=== PATIENT | female | born 1940 | race Caucasian/White ===

== ENCOUNTER 2019-05-08 11:29 | Inpatient (IN) | payer OTHER ==
[2019-05-08] MEDS ORDERED: NA CHLORIDE 0.9% 500 ML ONE (11:49)
[2019-05-08 11:59] LABS: Absolute Lymphocytes (CBC) 3.7 K/uL (0.7-4.9); Basophils % 0.7 % (0-1.3); Hematocrit 41.9 % (36.0-45.0); Lymphocytes % 27.8 % (15.3-44.8); MPV 8.6 fL (7.6-11.3); RBC Red Blood Cell Count 4.78 M/uL (3.86-4.86)
[2019-05-08 12:14] LABS: Potassium 4.1 mmol/L (3.5-5.1)
--- NOTE | 2019-05-08 12:15 | RAD REPORT ---
EXAM DESCRIPTION: CT - Head Brain Wo Cont - 05/08/2019 12:07 pm CLINICAL HISTORY: Declining state, transient alteration of awareness CT head October 2015 COMPARISON: None. TECHNIQUE: Axial 5 mm thick images of the head were obtained without IV contrast. All CT scans are performed using dose optimization technique as appropriate and may include automated exposure control or mA/KV adjustment according to patient size. FINDINGS: No intracranial hemorrhage, mass, edema or shift of mid-line structures. No acute cortical based infarction. No cortical edema or sulcal effacement. Patient has advanced atrophy. Ventricles a re in proportion to volume loss. Chronic ischemic change seen in the cerebral white matter. Atrophy c hanges have progressed from 2016. Physiologic and arterial calcifications are present. Mastoid air cells and visualized portions of the paranasal sinuses are clear. No acute bony findings. IMPRESSION: No hemorrhage, infarction or other acute intracranial finding identifiable. Advanced atrophy changes are present progressive from 2016. Ventricles are in proportion. Chronic ischemic change.
--- NOTE | 2019-05-08 12:15 | RAD REPORT ---
EXAM DESCRIPTION: Dona Single View05/08/2019 12:05 pm CLINICAL HISTORY: Leukocytosis COMPARISON: 2014 FINDINGS: The lungs appear clear of acute infiltrate. The heart is normal size IMPRESSION: No acute abnormalities displayed
[2019-05-08 12:46] LABS: Urine Bacteria >50 /HPF (<20); Urine RBC >50 /HPF (NONE SEEN)
[2019-05-08 12:47] LABS: Urine Amorphous Sediment 1+ /HPF (NONE SEEN); Urine Culture Reflex Order REFLEXED
[2019-05-08] MEDS ORDERED: CEFTRIAXONE/SWI 1gm 1 GM/10 ML SYR ONE (13:23)
[2019-05-08] MEDS ORDERED: NA CHLORIDE 0.9% 1,000 ML ONE (13:23)
--- NOTE | 2019-05-08 13:51 | ER ---
Nurse's Notes [facility] Name: Tere Oates Age: 79 yrs Sex: Female : 1940 Arrival Date: 05/08/2019 Time: 11:32 Bed 4 Private MD: Diagnosis: Urinary tract infection, site not specified;Dehydration;Altered mental status, unspecified;Hyperosmolality and hypernatremia Presentation: 05/08 11:32 Presenting complaint: EMS states: pt from [facility], they say for 6 days tw2 now she is altered, she has dementia and alzheimers, they say that normally she will feed herself and hold her own juice and for 6 days she has not been doing that, she also has wound to LEFT heel with blackness noted, she has elevated WBC they report from the skilled nursing. vs stable, bgl 145. Transition of care: patient was not received from another setting of care. Onset of symptoms was May 08, 2019. Risk Assessment: Do you want to hurt yourself or someone else? Patient reports no desire to harm self or others. Initial Sepsis Screen: Does the patient meet any 2 criteria? Altered Mental Status. HR > 90 bpm. Initial Sepsis Screen: Does the patient have a suspected source of infection? Yes: Skin breakdown/wound. Care prior to arrival: None. 11:32 Method Of Arrival: EMS: [facility] tw2 11:32 Acuity: ROSA 3 tw2 Triage Assessment: 11:39 General: Appears in no apparent distress. Behavior is cooperative. Pain: Denies pain. tw2 Neuro: Level of Consciousness is awake, alert, Oriented to person. Historical: - Allergies: 11:38 Fluoxetine; tw2 - Home Meds: 11:38 Aricept 23 mg Oral tab 1 tab once daily [Active]; Calcium with Vitamin D 600 tw2 mg(1,500mg) -400 unit Oral tab twice a day [Active]; citalopram 10 mg tab 1 tab once daily [Active]; Remeron 7.5 mg Oral tab 1 tab once daily [Active]; Vitamin C 500 mg Oral cpER [Active]; - PMHx: 11:38 ACUTE UPPER RESP INFECTION; Alzheimers; Dementia; Pneumonia; Depression; UTI; VITAMIN tw2 DEFICIENCY; - PSHx: 11:38 Hysterectomy; Bladder suspension; bladder stones; tw2 - Immunization history:: Adult Immunizations. - Social history:: Smoking status: . - Ebola Screening: : Patient denies travel to an Ebola-affected area in the 21 days before illness onset. - Hospitalizations: : No recent hospitalization is reported. - History obtained from: EMS. Screenin:39 Abuse screen: Denies threats or abuse. Nutritional screening: No deficits noted. tw2 Tuberculosis screening: No symptoms or risk factors identified. Fall Risk Secondary diagnosis (15 points) impaired mobility. Assessment: 11:40 General: Appears in no apparent distress. Behavior is calm. Neuro: Level of tw2 Consciousness is awake, obeys commands, Oriented to person. Cardiovascular: Heart tones S1 S2 Patient's skin is warm and dry. Respiratory: Airway is patent Respiratory effort is even, unlabored, Respiratory pattern is regular, symmetrical, Breath sounds are clear bilaterally. GI: Abdomen is flat, Bowel sounds present X 4 quads. : No signs and/or symptoms were reported regarding the genitourinary system. EENT: No signs and/or symptoms were reported regarding the EENT system. Derm: Wound noted right heel and left heel Wound is eschar noted to left and right heel from pressure ulcer. Musculoskeletal: Range of motion: limited in all extremities. 13:19 Reassessment: Patient appears in no apparent distress at this time. Patient and/or tw2 family updated on plan of care and expected duration. Pain level reassessed. 13:58 Reassessment: pts daughter came out requesting to motrin for pain "she keeps grabbing tw2 and shaking". 14:44 Reassessment: Patient appears in no apparent distress at this time. Patient and/or tw2 family updated on plan of care and expected duration. Pain level reassessed. Vital Signs: 11:34 BP 107 / 72; Pulse 95; Resp 18; Temp 97.5(TE); Pulse Ox 100% on R/A; Pain 0/10; tw2 11:51 Weight 65.77 kg (R); tw2 13:19 BP 127 / 109; Pulse 96; Resp 17; Pulse Ox 100% on R/A; tw2 14:35 BP 128 / 80; Pulse 95; Resp 18; Temp 97.8; Pulse Ox 100% on R/A; ph ED Course: 11:32 Patient arrived in ED. tw2 11:32 Bed in low position. Call light in reach. Side rails up X2. surveillance monitor on. Pulse tw2 ox on. NIBP on. Warm blanket given. 11:34 Triage completed. tw2 11:34 Arm band placed on. tw2 11:36 Ryan Jauregui MD is Attending Physician. rn 11:43 Nohemi Steve RN is Primary Nurse. tw2 11:53 Inserted saline lock: 22 gauge in left antecubital area, using aseptic technique. tw2 ,using aseptic technique. per Randal Young Blood collected. 12:04 XRAY Chest (1 view) In Process Unspecified. EDMS 12:08 CT Head Brain wo Cont In Process Unspecified. EDMS 12:31 Straight cath inserted, using sterile technique, 16 Fr. Specimen obtained. Returned ph cloudy urine. Patient tolerated poorly. 13:49 Holden Reyna DO is Hospitalizing Provider. rn 15:00 Awaiting: unsuccessful attempt to give report at this time. tw2 15:18 No provider procedures requiring assistance completed. Patient admitted, IV remains in tw2 place. Administered Medications: 11:53 Drug: NS 0.9% 500 ml Route: IV; Rate: bolus; Site: right antecubital; tw2 13:28 Follow up: Response: No adverse reaction; IV Status: Completed infusion; IV Intake: tw2 500ml 13:22 Drug: Rocephin 1 grams Route: IV; Rate: calculated rate; Site: left antecubital; tw2 13:28 Follow up: IV Status: Infusion continued upon admission tw2 13:28 Follow up: Response: No adverse reaction; IV Status: Completed infusion tw2 13:28 Drug: NS 0.9% 1000 ml Route: IV; Rate: 125 ml/hr; Site: left antecubital; tw2 13:29 Follow up: IV Status: Infusion continued upon admission tw2 Intake: 13:28 IV: 500ml; Total: 500ml. tw2 Outcome: 13:50 Decision to Hospitalize by Provider. rn 15:18 Admitted to Med/surg accompanied by randal, via stretcher, room 203, with chart, Report tw2 called to SUSAN Pang 15:18 Condition: stable 15:18 Instructed on the need for admit. 15:30 Patient left the ED. ph Signatures: Dispatcher [employer] EDHector Ennis [email or web address] Ryan Jauregui MD MD rn Hall, Patricia, RN RN Nohemi Steve RN RN tw2 Corrections: (The following items were deleted from the chart) 11:39 11:32 Presenting complaint: EMS states: pt from [facility], they say for 6 tw2 days now she is altered, she has dementia and alzheimers, they say that normally she will feed herself and hold her own juice and for 6 days she has not been doing that, she also has wound to right heel with blackness noted, she has elevated WBC they report from the skilled nursing. vs stable, bgl 145 tw2 11:51 11:34 Pulse 95bpm; Resp 18bpm; Pulse Ox 100% RA; Temp 97.5F Temporal; Pain 0/10; tw2 tw2 14:47 13:10 BP 127 / 109; jb1 tw2
--- NOTE | 2019-05-08 13:52 | EDPHYS ---
Physician Documentation [facility] Name: Tere Oates Age: 79 yrs Sex: Female : 1940 Arrival Date: 05/08/2019 Time: 11:32 Bed 4 Private MD: ED Physician Ryan Jauregui HPI: 05/08 11:43 This 79 yrs old Female presents to ER via EMS with complaints of Altered rn Mental Status. 11:43 The patient presents with confusion, decreased mental status. Onset: The rn symptoms/episode began/occurred 6 day(s) ago. Possible causes: unknown. Associated signs and symptoms: The patient has no apparent associated signs or symptoms. Current symptoms: In the emergency department the patient's symptoms are unchanged from the initial presentation. The patient has experienced similar episodes in the past. Per residential, 6 days of slowly worsening AMS, has dementia but worse lately, no focal complaints, but report patient not eating/drinking. No vomiting/diarrhea. Has known superficial wounds to heels from pressure. NO known trauma. Patient aphasic. . Historical: - Allergies: 11:38 Fluoxetine; tw2 - Home Meds: 11:38 Aricept 23 mg Oral tab 1 tab once daily [Active]; Calcium with Vitamin D 600 tw2 mg(1,500mg) -400 unit Oral tab twice a day [Active]; citalopram 10 mg tab 1 tab once daily [Active]; Remeron 7.5 mg Oral tab 1 tab once daily [Active]; Vitamin C 500 mg Oral cpER [Active]; - PMHx: 11:38 ACUTE UPPER RESP INFECTION; Alzheimers; Dementia; Pneumonia; Depression; UTI; VITAMIN tw2 DEFICIENCY; - PSHx: 11:38 Hysterectomy; Bladder suspension; bladder stones; tw2 - Immunization history:: Adult Immunizations. - Social history:: Smoking status: . - Ebola Screening: : Patient denies travel to an Ebola-affected area in the 21 days before illness onset. - Hospitalizations: : No recent hospitalization is reported. - History obtained from: EMS. ROS: 11:43 Unable to obtain ROS due to altered mental status, baseline dementia. rn Exam: 11:43 Constitutional: Female, no acute distress Head/Face: Normocephalic, atraumatic. ENT: rn very dry MM Cardiovascular: Regular rate and rhythm. No pulse deficits. Respiratory: No increased work of breathing, no retractions or nasal flaring. Abdomen/GI: soft, non-tender, non-distended MS/ Extremity: Pulses equal, no cyanosis. Bilateral lower extremities held preferably with knee flexion, chronic wound to left foot with dressing, right heel with pressure changes, no ulceration yet. Neuro: Awake, does not follow commands or answer questions. Vital Signs: 11:34 BP 107 / 72; Pulse 95; Resp 18; Temp 97.5(TE); Pulse Ox 100% on R/A; Pain 0/10; tw2 11:51 Weight 65.77 kg (R); tw2 13:19 BP 127 / 109; Pulse 96; Resp 17; Pulse Ox 100% on R/A; tw2 14:35 BP 128 / 80; Pulse 95; Resp 18; Temp 97.8; Pulse Ox 100% on R/A; ph MDM: 11:36 Patient medically screened. rn 13:49 Differential Diagnosis: electrolyte abnormality, hypoglycemia, pneumonia, sepsis, UTI, rn volume depletion. Data reviewed: vital signs, nurses notes, lab test result(s), EKG, radiologic studies, CT scan, plain films, and as a result, I will admit patient. Counseling: I had a detailed discussion with the patient and/or guardian regarding: the historical points, exam findings, and any diagnostic results supporting the discharge/admit diagnosis, lab results, radiology results, the need for further work-up and treatment in the hospital. Response to treatment: the patient's symptoms have mildly improved after treatment, and as a result, I will admit patient. Admission orders: after a detailed discussion of the patient's condition and case, the admit orders are written by me. 05/08 11:42 Order name: CBC with Diff; Complete Time: 12:29 rn 05/08 11:42 Order name: Basic Metabolic Panel; Complete Time: 12:29 rn 05/08 11:42 Order name: CT Head Brain wo Cont; Complete Time: 12:29 rn 05/08 11:42 Order name: Urine Microscopic Only; Complete Time: 13:13 rn 05/08 12:34 Order name: Urine Dipstick--Ancillary (enter results) eb 05/08 12:50 Order name: Urine Culture EDKY 05/08 11:42 Order name: IV Start; Complete Time: 11:53 rn 05/08 11:42 Order name: Urine Dipstick-Ancillary (obtain specimen); Complete Time: 14:35 rn 05/08 11:42 Order name: XRAY Chest (1 view); Complete Time: 12:29 rn 05/08 11:42 Order name: EKG; Complete Time: 11:45 rn 05/08 11:42 Order name: EKG - Nurse/Tech; Complete Time: 11:53 rn 05/08 11:53 Order name: Straight Cath - Urine; Complete Time: 12:24 tw2 Administered Medications: 11:53 Drug: NS 0.9% 500 ml Route: IV; Rate: bolus; Site: right antecubital; tw2 13:28 Follow up: Response: No adverse reaction; IV Status: Completed infusion; IV Intake: tw2 500ml 13:22 Drug: Rocephin 1 grams Route: IV; Rate: calculated rate; Site: left antecubital; tw2 13:28 Follow up: IV Status: Infusion continued upon admission tw2 13:28 Follow up: Response: No adverse reaction; IV Status: Completed infusion tw2 13:28 Drug: NS 0.9% 1000 ml Route: IV; Rate: 125 ml/hr; Site: left antecubital; tw2 13:29 Follow up: IV Status: Infusion continued upon admission tw2 Disposition: 05/08/19 13:50 Hospitalization ordered by Holden Reyna for Inpatient Admission. Preliminary diagnosis are Urinary tract infection, site not specified, Dehydration, Altered mental status, unspecified, Hyperosmolality and hypernatremia. - Bed requested for Telemetry/MedSurg (Inpatient). - Status is Inpatient Admission. ph - Condition is Stable. - Problem is new. - Symptoms have improved. UTI on Admission? Yes Signatures: Dispatcher [employer] EDRyan Orozco MD MD rn Hall, Patricia, RN RN ph Wise, Tara, RN RN tw2 Maria E Galan Corrections: (The following items were deleted from the chart) 13:50 13:50 Hospitalization Ordered by Holden Reyna DO for Inpatient Admission. Preliminary rn diagnosis is Urinary tract infection, site not specified; Dehydration; Altered mental status, unspecified. Bed requested for Telemetry/MedSurg (Inpatient). Status is Inpatient Admission. Condition is Stable. Problem is new. Symptoms have improved. UTI on Admission? Yes. rn 14:53 13:50 05/08/2019 13:50 Hospitalization Ordered by Holden Reyna DO for Inpatient eb Admission. Preliminary diagnosis is Urinary tract infection, site not specified; Dehydration; Altered mental status, unspecified; Hyperosmolality and hypernatremia. Bed requested for Telemetry/MedSurg (Inpatient). Status is Inpatient Admission. Condition is Stable. Problem is new. Symptoms have improved. UTI on Admission? Yes. rn 15:30 14:53 05/08/2019 13:50 Hospitalization Ordered by Holden Reyna DO for Inpatient ph Admission. Preliminary diagnosis is Urinary tract infection, site not specified; Dehydration; Altered mental status, unspecified; Hyperosmolality and hypernatremia. Bed requested for Telemetry/MedSurg (Inpatient). Status is Inpatient Admission. Condition is Stable. Problem is new. Symptoms have improved. UTI on Admission? Yes. eb
[2019-05-08] MEDS ORDERED: IBUPROFEN 400 MG TAB ONE (14:03)
--- NOTE | 2019-05-08 14:44 | P.HP ---
Certification for Inpatient Patient admitted to: Inpatient With expected LOS: >2 Midnights Patient will require the following post-hospital care: None Practitioner: I am a practitioner with admitting privileges, knowledge of patient current condition, hospital course, and medical plan of care. Services: Services provided to patient in accordance with Admission requirements found in Title 42 Section 412.3 of the Code of Federal Regulations Patient History Date of Service: 05/08/19 Primary Care Provider: [facility] [place] physician Reason for admission: Altered mental status History of Present Illness: 79-year-old female with history of severe dementia and depression presented to the emergency room with a change in her normal baseline mental status. Most information came from the daughter and son who were present at bedside along with the ER physician. Over the past week patient has had poor oral intake. Patient with altered mental status. There has been a change from her baseline status. Patient with severe dementia. There is no mention of fever, chills. No cough for congestion. [facility] [place] had ordered lab this morning. They noted elevated white count with acute renal injury and hypernatremic. She was sent over to the ER for further evaluation. In the ER patient was evaluated. Vital signs stable. White count 13.4, hemoglobin 13.4. Platelet count of 451. Sodium 156, potassium 4.1, chloride 122 , BUN of 29, creatinine 1.31 with a GFR of 39. Glucose 111. CT head shows no acute findings. Chest x-ray unremarkable. Urinalysis was positive for UTI. Patient was admitted for further evaluation and treatment. Patient started on antibiotic therapy and IV fluids. When I saw the patient ER, she appeared stable. Patient with severe dementia. Family at bedside. Patient did not appear septic. Family reports that the patient has had poor oral intake over the past several days. Allergies fluoxetine Allergy (Unverified 02/04/15 17:32) Unknown fluoxetine HCl [From Prozac] Allergy (Verified 09/10/13 10:03) UNK Home medications list reviewed: Yes Home Medications: Calc/D3/Mag/Zn/Fish Machine Feeder/[place] [Calcium 600 mg + Vit D Tab] 1 each PO BID Citalopram Hydrobromide [Citalopram HBr] 20 mg PO DAILY 09/10/13 Divalproex Sodium [Divalproex Sodium ER] 1,500 mg PO DAILY 09/10/13 Donepezil HCl [Aricept] 10 mg PO BEDTIME 09/10/13 Multivit-Min/FA/Lycopene/Lut [Centrum Silver Tablet] 1 each PO DAILY 09/10/13 Sennosides/Docusate Sodium [Senna Plus Tablet] 1 each PO DAILY PRN 09/10/13 l Gasseri/B Bifidum/B Longum [restOpolis Health Capsule] 1 each PO DAILY Azithromycin Tab [Zithromax -Tab] 250 mg PO DAILY #10 tab 09/14/13 Warfarin Sodium [Coumadin*] 4 mg PO DAILY 5 PM #30 tab 09/14/13 - Past Medical/Surgical History Diabetic: No -: Severe Alzheimer's dementia -: History of UTI -: Depression -: History of melanoma -: Chronic heel ulcers -: Chronic renal disease stage III -: Hysterectomy -: Bladder suspension -: Tonsillectomy Psychosocial/ Personal History: Patient has been at the [facility] for quite some time. - Family History Family History: Reviewed- Non-Contributory - Social History Smoking Status: Never smoker Alcohol use: No CD- Drugs: No Caffeine use: No Place of Residence: Custodial Review of Systems General: Weakness, As per HPI Eyes: Unremarkable ENT: Unremarkable Respiratory: Unremarkable Cardiovascular: Unremarkable Gastrointestinal: Unremarkable Genitourinary: As per HPI Musculoskeletal: Unremarkable Integumentary: Unremarkable Neurological: Confusion, As per HPI Lymphatics: Unremarkable Physical Examination - Physical Exam General: Alert, In no apparent distress, Demented (Severe dementia) HEENT: Atraumatic, Normocephalic, Other (Dry mucous membranes) Neck: Supple Respiratory: Clear to auscultation bilaterally, Normal air movement Cardiovascular: Normal pulses, Regular rate/rhythm Gastrointestinal: Normal bowel sounds, Soft and benign, Non-distended, No tenderness, No masses, No rebound, No guarding Musculoskeletal: No tenderness, No warmth, Other (Severe kyphosis) Integumentary: Other (Chronic ulcers bilateral) Neurological: Normal speech, Normal strength at 5/5 x4 extr, Normal tone, Dementia (Severe dementia) - Studies Laboratory Data (last 24 hrs) 05/08/19 11:50: Sodium 156 H, Potassium 4.1, BUN 29 H, Creatinine 1.31 H, Glucose 111 H 05/08/19 11:50: WBC 13.4 H D, Hgb 13.4, Hct 41.9, Plt Count 451 H Assessment and Plan - Plan Impression: Toxic encephalopathy related to UTI Acute on chronic renal failure stage 3 with hypernatremia Severe Alzheimer's dementia Chronic bilateral heel ulcers Plan: Toxic encephalopathy related to UTI: Patient will be admitted for further evaluation and treatment. Will continue with IV fluid hydration. Will start IV Rocephin, pharmacy to monitor and adjust appropriately. Blood, urine cultures obtained. Await final results. Will provide DVT prophylaxis-Lovenox. Advanced directives address with family. Patient has [id number] DNR. Will continue with DNR status. If her condition continues to decline family would consider hospice at the [facility]. Family also reports patient and family do not desire any PEG tube placement if recommended. Will have dietary assess daily needs. Will continue to monitor closely. Anticipate discharge in 3-4 days pending clinical improvement. I will turn the service over to the hospitalist team tomorrow. I will go over the plan of care with him. Acute on chronic renal failure stage 3 with hypernatremia: Will continue with IV fluids. Will monitor closely. Electrolyte protocol in place. Nephrology consulted to further assess. Severe Alzheimer's dementia: Continue with Aricept, Celexa, and Remeron. Chronic bilateral heel ulcers: Will consult wound care to address heel ulcers. Provide heel protection. Discharge Plan: Custodial Plan to discharge in: Greater than 2 days - Advance Directives Does patient have a Living Will: No Does patient have a Durable POA for Healthcare: Yes - Code Status/Comfort Care Code Status Assessed: Yes (Patient is DNR) Time Spent Managing Pts Care (In Minutes): 55
[2019-05-08] MEDS ORDERED: ACETAMINOPHEN 500 MG TAB PO PRN (15:54)
[2019-05-08] MEDS ORDERED: ONDANSETRON 4 MG/2 ML VIAL IV PRN (15:54)
[2019-05-08 16:02] VITALS: BMI 30.7
--- NOTE | 2019-05-08 16:34 | EKG ---
Test Date: 2019-05-08 Test Time: 11:54:42 Spinning Bath Patroller: JOE MEASUREMENT RESULTS: Intervals: Rate: 103 ME: 116 QRSD: 62 QT: 342 QTc: 448 [place]: P: 34 ME: 116 QRS: -29 T: 0 INTERPRETIVE STATEMENTS: Sinus tachycardia with occasional and consecutive premature ventricular complexes and fusion complexes Minimal voltage criteria for LVH, may be normal variant Inferior infarct, age undetermined Abnormal ECG Compared to ECG 01/31/2015 13:44:26 Fusion complex(es) now present Ventricular premature complex(es) now present Left ventricular hypertrophy now present Myocardial infarct finding now present Sinus bradycardia no longer present Electronically Signed On 05-08-19 16:33:49 TRAFFIC REPORTER by Duy Hughes
[2019-05-08] MEDS: D5 0.45 NS 1,000 ML IV SCH (17:42)
[2019-05-08] MEDS: ENOXAPARIN 40 MG/0.4 ML SQ SCH (17:42)
[2019-05-08 17:44] LABS: Urine Blood 3+ (NEG); Urine Glucose NEGATIVE (NEG); Urine Protein 3+ (NEG); Urine pH 8.5 (5.0-7.0)
[2019-05-08] MEDS: MIRTAZAPINE 15 MG TAB PO SCH (21:00)
[2019-05-08] MEDS: DONEPEZIL HCL 5 MG TAB PO SCH (21:00)
[2019-05-09 06:33] LABS: Absolute Lymphocytes (CBC) 2.8 K/uL (0.7-4.9); Basophils % 0.9 % (0-1.3); Hematocrit 35.8 % (36.0-45.0); Lymphocytes % 25.5 % (15.3-44.8); MPV 8.9 fL (7.6-11.3)
[2019-05-09] MEDS: D5 0.45 NS 1,000 ML IV SCH (06:56)
[2019-05-09 07:25] LABS: Magnesium 2.3 mg/dL (1.8-2.4); Potassium 3.5 mmol/L (3.5-5.1)
[2019-05-09] MEDS: CITALOPRAM 10 MG TABLET PO SCH (09:00)
[2019-05-09] MEDS: ENOXAPARIN 40 MG/0.4 ML SQ SCH (09:38)
[2019-05-09] MEDS: CEFTRIAXONE/SWI 1gm 1 GM/10 ML SYR IVP SCH (09:38)
--- NOTE | 2019-05-09 12:53 | P.CNS ---
Date of Consult: 05/09/19 Reason for Consult: Lilia , hypernatremia Primary Care Provider: retirement physician Chief Complaint: Altered mental status History of Present Illness: pt is unable to provide HX, Hx obtained from chart A 79-year-old resident, bedbound, with advanced dementia pt sent from [place] for decreased oral intake pt had poor oral inatke over the past week, last todays noticed to have AMS , and no oral intake as per family ot have no fever, chills, nausea, vomiting, chest pain or palpitation Allergies fluoxetine Allergy (Severe, Verified 05/08/19 16:18) Unknown fluoxetine HCl [From Prozac] Allergy (Verified 05/08/19 16:17) UNK Home medications list reviewed: Yes Home Medications: Multivit-Min/FA/Lycopene/Lut [Centrum Silver Tablet] 1 each PO DAILY 09/10/13 Acetaminophen 2 tab PO Q4H PRN 05/08/19 Arginine/Ascorbate Sod/Edwar AC [Arginaid Powder] 1 packet PO DAILY 05/08/19 Ascorbate Calcium [Vitamin C] 1 tab PO DAILY 05/08/19 Calcium Carbonate/Vitamin D3 [Calcium 600 with Vit D Chew Tb] 1 tab PO BID 05/08 Citalopram [Celexa*] 1 tab PO DAILY 05/08/19 Donepezil HCl [Aricept] 1 tab PO BEDTIME 05/08/19 Mirtazapine 1 tab PO BEDTIME 05/08/19 Zinc Sulfate [Zinc Sulfate*] 220 mg PO DAILY 05/08/19 - Past Medical/Surgical History Diabetic: No -: Severe Alzheimer's dementia -: History of UTI -: Depression -: History of melanoma -: Chronic heel ulcers -: Chronic renal disease stage III -: Hysterectomy -: Bladder suspension -: Tonsillectomy Psychosocial/ Personal History: [facility] has been at the [facility] for [facility] some [facility]. - Social History Smoking Status: Never smoker Alcohol use: No CD- Drugs: No Caffeine use: Yes Place of Residence: [facility] Review of Systems General: As per HPI Eyes: Unremarkable ENT: Unremarkable Respiratory: As per HPI Cardiovascular: As per HPI Gastrointestinal: As per HPI Genitourinary: Unremarkable Musculoskeletal: Other (Bedbound) Neurological: Other (was confused now at baseline ) Physical Examination Temp Pulse Resp BP Pulse Ox 97.3 F 88 18 121/76 97 05/09/19 08:00 12/21/19 08:00 05/09/19 08:00 05/09/19 08:00 05/09/19 08:00 General: Alert, Oriented x1 HEENT: Atraumatic, EOMI Neck: Supple, Without JVD or thyroid abnormality Respiratory: Clear to auscultation bilaterally, Normal air movement Cardiovascular: No edema, Regular rate/rhythm, Normal S1 S2, No gallops, No rubs , No murmurs Gastrointestinal: Soft and benign, Non-distended Conclusions/Impression: LILIA resolved due to prerenal azotemia hypernatremia and hypercholeremia due to dehydration will switch fluid to D5w lt foot wound F/u X-ray Surgery evaluation UTI F/u culture cont Abx
[2019-05-09] MEDS: D5 0.9 NS 1,000 ML IV SCH (14:11)
--- NOTE | 2019-05-09 15:27 | RAD REPORT ---
EXAM DESCRIPTION: RAD - Foot Left 3 View - 05/09/2019 2:03 pm CLINICAL HISTORY: Left Foot pain FINDINGS: No fracture or dislocation is seen. Cortical irregularity involves the plantar aspect of the distal calcaneus. This may indicate mild os teomyelitis. If clinically indicated further evaluation with MRI could be obtained Osteoporosis
[2019-05-09 16:43] LABS: Thyroid Stimulating Hormone 1.67 uIU/mL (0.360-3.740)
--- NOTE | 2019-05-09 17:35 | PN ---
Subjective: Currently, she is lying in bed. She is sleeping. She is not responsive to verbal stimuli, but she responds to touch. She continues to be confused at baseline. Objective: Vital Signs: Currently, blood pressure is 121/76, respiratory rate 18, pulse 88, temperature 97.3. Patient is saturating 97% on room air. General: She is sleeping, but arousable. Confused. Does not look in any distress. HEENT: Atraumatic, normocephalic. Oral mucosa is dry. Neck: Supple. No JVD. No bruits. Chest: Clear to auscultation. Good air entry. Heart: Regular rate and rhythm. S1, S2 normal. No gallop. Abdomen: Soft, nontender. No masses. No hepatosplenomegaly. Positive bowel sounds. Extremities: No clubbing, cyanosis, or edema. No calf tenderness. Left foot with a large open wound. Dressing in place. There is no bleeding or oozing. Neurologic: Normal speech and normal muscle strength, but she is confused due to her severe dementia. Laboratory Data: Today, CBC was normal except for hemoglobin 11.4. Chemistry within normal except for sodium of 153, chloride 102, GFR 58, glucose 126, calcium 7.7. Assessment And Plan: 1. Toxic encephalopathy secondary to urinary tract infection versus dementia. According to the family, patient's mental status is at baseline. We will continue to observe for now. 2. Urinary tract infection. Urine culture was positive for gram-negative rods. She is on ceftriaxone. We will continue that for now. We will switch to Cipro upon discharge based on the sensitivity. 3. A large open wound on the left foot heel. We will consult Wound Care. We will consult general surgeon to see if the patient will benefit from debridement. 4. Hypernatremia with acute renal failure. Renal failure resolved with IV fluids. Hypernatremia is not much better. Her sodium is down from 166 to 153. She is on D5 half-normal saline. Nephrology is following. 5. Dementia. She is on Celexa as well as Aricept. 6. Deep vein thrombosis prophylaxis, on Lovenox. 7. Insomnia, on Remeron. 8. Consider PT/OT evaluation if no surgery , unless pt is bedbound , will check with family MT/MELISSA Voice ID: [id number] Report ID: [id number] MTDD
[2019-05-09] MEDS: MIRTAZAPINE 15 MG TAB PO SCH (20:42)
[2019-05-09] MEDS: DONEPEZIL HCL 5 MG TAB PO SCH (20:42)
[2019-05-10] MEDS: D5 0.9 NS 1,000 ML IV SCH ×2 (02:45→16:00)
[2019-05-10 04:59] LABS: Absolute Lymphocytes (CBC) 2.6 K/uL (0.7-4.9); Basophils % 0.4 % (0-1.3); Hematocrit 34.6 % (36.0-45.0); MPV 8.5 fL (7.6-11.3); RBC Red Blood Cell Count 3.97 M/uL (3.86-4.86)
[2019-05-10 05:10] LABS: Magnesium 2.1 mg/dL (1.8-2.4); Phosphorus 2.2 mg/dL (2.5-4.9); Potassium 3.4 mmol/L (3.5-5.1)
[2019-05-10] MEDS: KCL 20 MEQ/100 mL IVPB 20 MEQ/100 ML BAG IV SCH ×2 (05:51→08:53)
[2019-05-10] MEDS: CITALOPRAM 10 MG TABLET PO SCH (08:53)
[2019-05-10] MEDS: ENOXAPARIN 40 MG/0.4 ML SQ SCH (08:55)
[2019-05-10] MEDS: CEFTRIAXONE/SWI 1gm 1 GM/10 ML SYR IVP SCH (08:55)
--- NOTE | 2019-05-10 10:10 | P.PN ---
Subjective Date of Service: 05/10/19 Primary Care Provider: [facility]iary physician Chief Complaint: Altered mental status Subjective Pt was admitted with poor oral intake, found to have UTI , LILIA and hypernatremia Today sodium improving to 150 K replaced X-ray with poible OM, consider CT scan or MRI for further evaluation pending surgery evaluation Past Medical/Surgical History Diabetic: No -: Severe Alzheimer's dementia -: History of UTI -: Depression -: History of melanoma -: Chronic heel ulcers -: Chronic renal disease stage III -: Hysterectomy -: Bladder suspension -: Tonsillectomy Psychosocial/ Personal History: Patient has been at the custodial for quite some time. - Social History Smoking Status: Never smoker Alcohol use: No CD- Drugs: No Caffeine use: Yes Place of Residence: [facility] General: Alert, Oriented x1 HEENT: Atraumatic, EOMI Neck: Supple, Without JVD or thyroid abnormality Respiratory: Clear to auscultation bilaterally, Normal air movement Cardiovascular: Regular rate/rhythm, Normal S1 S2, No gallops, No rubs, No murmurs Gastrointestinal: Soft and benign, Non-distended extreemites: B/l feet dressing , trace edema LILIA resolved due to prerenal azotemia hypernatremia and hypercholeremia due to dehydration and poor oral intake improving Encourage Po intake Cont D5w lt foot wound with Possible OM Consider CT scan or MRI for further evaluation Surgery evaluation UTI E.coli and proteus cont Abx Physical Examination - Vital Signs Temperature: 97.1 F Blood Pressure: 113/63 Pulse: 67 Respirations: 18 Pulse Ox (%): 96 - Studies Microbiology Data (last 24 hrs): 05/08/19 12:25 Clean Catch Urine [place] Count - Final >100,000 CFU/ML. 05/08/19 12:25 Clean Catch Urine - Final Escherichia Coli Proteus Mirabilis
--- NOTE | 2019-05-10 16:40 | PN ---
Subjective: Currently patient lying in bed. She is very confused. Her daughter is at bedside. The re is no chest pain. No fever or chills or shortness of breath overnight. She is having difficulty swallowing. Details are clear about the result of x-ray. Review of Systems: Otherwise negative. Objective: CURRENT VITAL SIGNS: Blood pressure 113/63, respiratory rate 67, respiratory rate 18, te mperature 97.1. General: The patient is alert but confused. Does not look in any distress. HEENT: Atraumatic, normocephalic. PERRLA. Oral mucosa is moist. Neck: Supple. No JVD. No bruits. CHEST: Clear to auscultation. Good air entry. Heart: Regular rate and rhythm S1, S2 normal. No gallop or murmur. Abdomen: Soft, nontender. No masses. No HSM. Positive bowel sounds. Extremities: No clubbing, cyanosis, or edema. No edema no cough tenderness. Left is large open wou nd with a dressing around it. There was no bleeding or oozing noted exam deferred today. Patient is confused. Laboratory Data: Labs today showed CBC within normal except for hemoglobin 10.9. Chemistry within n ormal except for potassium 3.4, chloride 120, sodium 150. GFR of 69, glucose 126, calcium 7.8. Assessment And Plan: 1.Toxic encephalopathy secondary to urinary tract infection versus progressive dementia. The patien t's mental status is at baseline. Continue to observe for now. 2.Urinary tract infection. Urine culture was positive for gram-negative rods. The patient on ceftr iaxone, will continue that for now and may be switched to Cipro and sensitive to Cipro upon discharge . 3.Large open wound on the left foot. X-ray consistent with possible osteomyelitis. Surgical consul t requested yesterday from Dr. French is still pending. We will proceed with MRI of the foot and we will see if patient will need debridement. 4.Hyponatremia in the light of acute renal failure. Improving her creatinine down to normal. Sodiu m is down to 150. She is on D5 half-normal. Nephrology managing. 5.Hypokalemia, mild. We will replace. 6.Deep vein thrombosis prophylaxis, on Lovenox. 7.Insomnia, on Remeron. 8.Dysphagia. We will obtain swallow eval. Daughter is not interested in PEG tube if patient cannot swallow as patient is DNR and she had a poor quality life. MT/MODL Voice ID: [id number] Report ID: [id number]
[2019-05-10] MEDS: MIRTAZAPINE 15 MG TAB PO SCH (20:40)
[2019-05-10] MEDS: DONEPEZIL HCL 5 MG TAB PO SCH (20:40)
[2019-05-11] MEDS: D5 0.9 NS 1,000 ML IV SCH ×2 (04:50→15:41)
[2019-05-11 05:01] LABS: Absolute Lymphocytes (CBC) 2.6 K/uL (0.7-4.9); Basophils % 1.1 % (0-1.3); Hematocrit 34.5 % (36.0-45.0); Lymphocytes % 27.1 % (15.3-44.8); MPV 8.9 fL (7.6-11.3); RBC Red Blood Cell Count 4.01 M/uL (3.86-4.86)
[2019-05-11 05:12] LABS: Phosphorus 2.1 mg/dL (2.5-4.9); Potassium 3.5 mmol/L (3.5-5.1)
[2019-05-11] MEDS ORDERED: KCL 20 MEQ/100 mL IVPB 20 MEQ/100 ML BAG IV SCH (06:00)
[2019-05-11] MEDS: CITALOPRAM 10 MG TABLET PO SCH ×2 (08:13→14:51)
[2019-05-11] MEDS: CEFTRIAXONE/SWI 1gm 1 GM/10 ML SYR IVP SCH (08:15)
[2019-05-11] MEDS: JUVEN PACKET PO SCH ×4 (08:50→21:09)
[2019-05-11] MEDS: ENSURE HIGH PROTEIN 237 ML CAN PO SCH ×3 (08:50→21:09)
[2019-05-11] MEDS: ENOXAPARIN 40 MG/0.4 ML SQ SCH ×2 (09:00→14:43)
--- NOTE | 2019-05-11 10:46 | RAD REPORT ---
EXAM DESCRIPTION: RAD - Barium Swallow Modified - 05/11/2019 10:07 am CLINICAL HISTORY: Dysphagia COMPARISON: None. TECHNIQUE: The patient was given liquid, semi-solid and solid forms of barium. Lateral view fluorosc opic imaging was performed in conjunction with speech pathology service. FINDINGS: Cineloop acquisitions: 9 Fluoro time: 2 minutes 42 seconds Pharyngeal residue: vallecular , priform mild with honey , puree ad grham cracker cleared on multi sw allow , other : mild stasis in ues , mild-mod esophageal retention with dry solids cleared with nectar wash IMPRESSION: Modified barium swallow as summarized above and fully detailed on speech pathology repor tMihir
--- NOTE | 2019-05-11 14:11 | P.PN ---
Date of Service: 05/11/19 PC: I was asked to assess a 79-year-old female in regards to injuries on her heels. HPC: Patient has dense Alzheimer's. Minimal reactions at all. She is a patient in a [place] [facility]. More recently she has not been doing as well as usual. Has been a decline in her condition. She is no longer eating. It was noticed to have breakdown the skin on her heels. PMH: Alzheimer's SOC: Listed and noted SYS REVIEW: Long discussion with her family. She has been in some physical decline recently. Has been eating at all well. She just had a swallow test recently which she passed. She has been like this for the last 18 years. O/E awake does not appear to be any discomfort HEENT: WNL Chest: Chest wound equal bilaterally ABD: Sign LOCO: On her heel has an area of extensive necrotic tissue. However once it is clear that there is an area that shows full-thickness skin necrosis but there is healthy granulation tissue around it. No evidence of any abscess. IMPRESSION: Patient has bilateral heel necrosis. Appears to be full-thickness skin loss of these areas. However there is viable underlying tissue in the area. PLAN: This patient is on require surgical debridement at this moment. Recommend conservative therapy due to her underlying medical conditions. The family is strongly discussing just routine hospice care for her. I would be very supportive in that decision. In the meantime recommend conservative wound management, and barriers on her feet. She has been seen by the wound care team.
--- NOTE | 2019-05-11 15:10 | P.PN ---
Subjective Date of Service: 05/11/19 Primary Care Provider: [facility]it[facility]iary physician Chief Complaint: Altered mental status Subjective Pt was admitted with poor oral intake, found to have UTI , LILIA and hypernatremia Today sodium improving to 147 K replaced X-ray with possible OM, consider CT scan or MRI for further evaluation No surgical intervention at this time Past Medical/Surgical History Diabetic: No -: Severe Alzheimer's dementia -: History of UTI -: Depression -: History of melanoma -: Chronic heel ulcers -: Chronic renal disease stage III -: Hysterectomy -: Bladder suspension -: Tonsillectomy Psychosocial/ Personal History: [facility] at [facility]. - Social History Smoking Status: Never smoker Alcohol use: No CD- Drugs: No Caffeine use: Yes Place of Residence: [facility] General: Alert, Oriented x1 HEENT: Atraumatic, EOMI Neck: Supple, Without JVD or thyroid abnormality Respiratory: Clear to auscultation bilaterally, Normal air movement Cardiovascular: Regular rate/rhythm, Normal S1 S2, No gallops, No rubs, No murmurs Gastrointestinal: Soft and benign, Non-distended extreemites: B/l feet dressing , trace edema LILIA resolved due to prerenal azotemia hypernatremia and hypercholeremia due to dehydration and poor oral intake improving Encourage Po intake Cont D5w lt foot wound with Possible OM Consider CT scan or MRI for further evaluation Surgery evaluation UTI E.coli and proteus cont Abx Physical Examination - Vital Signs Temperature: 98 F Blood Pressure: 159/86 Pulse: 92 Respirations: 20 Pulse Ox (%): 99
--- NOTE | 2019-05-11 16:33 | PN ---
Date of Progress Note: 05/11/2019 Subjective: Patient is seen and examined. Chart reviewed and case discussed with RN and speech ther reji. Daughter at the bedside, decision maker. Medications: List reviewed. Code Status: Do not resuscitate. Physical Examination: Vital Signs: Temperature 98.3, heart rate 90, blood pressure 131/69, respirations 20, O2 of 97% on r oom air. General: Awake, alert, elderly female, demented and nonverbal, slightly ill-appearing. CV: S1, S2. Regular rate and rhythm. Peripheral pulses present. Respiratory: Moving air well bilaterally. No wheezing or stridor. No use of accessory muscles. Gastrointestinal: Abdomen is soft, nontender, nondistended. Positive bowel sounds. Extremities: No clubbing, cyanosis. Patient has some trace pedal edema. Neurologic: Nonfocal. The patient does have contractures of lower extremity. Skin: The patient has large left wound on the heel with dressing. No discharge. Laboratory Data: Sodium 147, potassium 3.5, chloride 118, CO2 of 26, BUN 8, creatinine 0.73, glucose 127, calcium 7.8. Phosphorus 2.1, magnesium 2. WBC 9.6, H and H 11 and 34.5, platelets 344, neutro phils 59.9%. Urine culture growing out E coli and proteus. Blood cultures, no growth to date. Woun d culture from the left heel growing proteus. Modified barium swallow study completed today. Recomm ended to have puree foods and thin liquids, no aspiration noted. Assessment And Plan: 1.Toxic encephalopathy secondary to urinary tract infection and progressive dementia. Patient now s eems to be back to her baseline. She has an Alzheimer's demented, is nonverbal. 2.Acute cystitis with hematuria secondary to Escherichia coli and proteus. We will continue with IV Rocephin. WBC count has normalized. 3.Large open wound on the left foot. X-ray consistent with possible osteomyelitis. Unable to do MR I. Patient is unable to straighten out the foot. Dr. Jones has been consulted. Patient may need debridement. 4.Hyponatremia. We will continue with D5 half NS. Appreciate Nephrology input. We will continue t o monitor sodium level. 5.Hypokalemia, replaced. We will continue to monitor. 6.Hypophosphatemia. We will replace and monitor. 7.Insomnia. Patient is on Remeron. 8.Dysphagia. Patient had modified barium swallow study. Spoke with speech therapists. Recommends pureed foods along with thin liquids as well as aspiration precautions. Patient's wishes are against PEG tube if needed. 9.Alzheimer dementia without behavioral disturbance, moderately advanced. Patient is a DNR, has a p oor quality of life, is wheelchair bound, bed-bound. Plan: We will continue with IV antibiotics. Blood cultures are negative to date. Currently on Roce phin for possible debridement by Dr. Jones. /MELISSA Voice ID: [id number] Report ID: [id number]
[2019-05-11] MEDS: MIRTAZAPINE 15 MG TAB PO SCH (21:08)
[2019-05-11] MEDS: DONEPEZIL HCL 5 MG TAB PO SCH (21:09)
[2019-05-12] MEDS: D5 0.9 NS 1,000 ML IV SCH (02:39)
[2019-05-12 05:34] LABS: Absolute Lymphocytes (CBC) 2.6 K/uL (0.7-4.9); Basophils % 0.4 % (0-1.3); Hematocrit 33.6 % (36.0-45.0); Lymphocytes % 27.9 % (15.3-44.8); MPV 8.3 fL (7.6-11.3); RBC Red Blood Cell Count 3.89 M/uL (3.86-4.86)
[2019-05-12 05:47] LABS: Bilirubin Total 0.7 mg/dL (0.2-1.0); Potassium 3.3 mmol/L (3.5-5.1)
[2019-05-12] MEDS ORDERED: POTASSIUM CL 40 MEQ in NA CHLORIDE 0.9% 500 ML IV SCH (08:00)
[2019-05-12] MEDS: ENOXAPARIN 40 MG/0.4 ML SQ SCH (08:15)
[2019-05-12] MEDS: CEFTRIAXONE/SWI 1gm 1 GM/10 ML SYR IVP SCH (08:16)
[2019-05-12] MEDS: CITALOPRAM 10 MG TABLET PO SCH (08:16)
[2019-05-12] MEDS: JUVEN PACKET PO SCH (08:16)
[2019-05-12] MEDS: ENSURE HIGH PROTEIN 237 ML CAN PO SCH (08:16)
[2019-05-12] MEDS ORDERED: POTASSIUM CL SA 10 MEQ TAB PO ONE (09:00)
[2019-05-12 15:28] VITALS: O2SAT 97
--- NOTE | 2019-05-12 15:39 | P.PN ---
Subjective Date of Service: 05/12/19 Primary Care Provider: [facility] physician Chief Complaint: Altered mental status Subjective: New changes Subjective Pt was admitted with poor oral intake, found to have UTI , LILIA and hypernatremia Today sodium improving to 146 K 3.3 replaced pt is to be discharged [facility] Cleared for discharge from nephrology point of view Past Medical/Surgical History Diabetic: No -: Severe Alzheimer's dementia -: History of UTI -: Depression -: History of melanoma -: Chronic heel ulcers -: Chronic renal disease stage III -: Hysterectomy -: Bladder suspension -: Tonsillectomy Psychosocial/ Personal History: Patient has been at the retirement for quite some time. - Social History Smoking Status: Never smoker Alcohol use: No CD- Drugs: No Caffeine use: Yes Place of Residence: [facility] General: Alert, Oriented x1 HEENT: Atraumatic, EOMI Neck: Supple, Without JVD or thyroid abnormality Respiratory: Clear to auscultation bilaterally, Normal air movement Cardiovascular: Regular rate/rhythm, Normal S1 S2, No gallops, No rubs, No murmurs Gastrointestinal: Soft and benign, Non-distended extreemites: B/l feet dressing , trace edema LILIA resolved due to prerenal azotemia hypernatremia and hypercholeremia due to dehydration and poor oral intake lt foot wound with Possible OM Consider CT scan or MRI for further evaluation family refused surgery UTI E.coli and proteus cont Abx poor prognosis to be discharged with Hospice care Physical Examination - Vital Signs Temperature: 97.3 F Blood Pressure: 122/50 Pulse: 84 Respirations: 17 Pulse Ox (%): 94
[2019-05-12 16:52] VITALS: BP 129/64; TEMP 98.4
--- NOTE | 2019-05-12 21:01 | DS ---
Date of Discharge: 05/12/2019 Consultants: 1. Dr. Jones with General Surgery. 2. Dr. Monique with Nephrology. Procedures: None. Discharge Diagnoses: 1. Acute cystitis without hematuria secondary to Escherichia coli. 2. Hypernatremia. 3. Osteomyelitis of left foot. 4. Advanced Alzheimer's dementia. Hospital Course: Patient is a 79-year-old female who is a resident of nursing facility due to advanced dementia, comes in with change in mental status. Patient also was found to have UTI. She was started on IV antibiotics with Rocephin. Cultures returned including E coli and were sensitive to penicillin. Patient also had some electrolyte abnormalities including hypernatremia. Nephrology was consulted. Patient had improvement in her condition. Patient does have long-standing dementia and is fairly advanced. Patient is nonverbal. Lives in nursing facility and needs complete assistance with her activities of daily living. Patient does have a living will and wishes to be DNR. Does not want any artificial nutrition including IV fluids or PEG tube. Patient was found to have a wound on the left foot as well and heel. This was seen by Dr. Jones. He did not recommend any surgical intervention at this time. Topical treatment was continued along with wound care. Patient is not a candidate for surgery. Patient also had dysphagia due to her dementia. This was evaluated by Speech Therapy and modified barium swallow study is not found to have any significant aspiration. Therefore, however, due to her difficulty with following commands, she was placed on pureed diet with thin liquids. Family decided to pursue hospice care and care and comfort. Therefore, [facility] was contacted and the patient were referred to hospice. Overall, patient's prognosis is poor. She has had advanced dementia for 15 years, had early dementia per the daughter. She has total care at this time. I believe that hospice is appropriate for her and is congruent with her wishes. Discharge Condition: Stable. Diet: Pureed diet with thin liquids. Activity: Fall precautions. Follow up with PCP as needed. Care and comfort measures will be initiated. Medications: As per medication reconciliation list. Physical Examination: General: Awake, alert, not oriented, advanced dementia. CV: S1, S2. Respiratory: Moving air well bilaterally. Abdomen: Soft, nontender, nondistended. Positive bowel sounds. Extremities: No clubbing, cyanosis, edema. Time Spent: Total time spent discharging the patient was 32 minutes. AMARJIT Voice ID: [id number] Report ID: [id number]
== END 2019-05-12 18:12 | disposition hospice, inpatient (51) | DRG 689 ==
LOC: ER 11:29 → ERHOLD 14:31 → 2ND 15:19
PROVIDERS: ADMIT Family Medicine; ATTEND Family Medicine
DX: N30.00 Acute cystitis without hematuria (principal); G92 Toxic encephalopathy; N17.9 Acute kidney failure, unspecified; E87.0 Hyperosmolality and hypernatremia; M86.172 Other acute osteomyelitis, left ankle and foot; E87.1 Hypo-osmolality and hyponatremia; B96.20 Unspecified Escherichia coli [E. coli] as the cause of diseases classified elsewhere; N18.3 Chronic kidney disease, stage 3 (moderate); L89.620 Pressure ulcer of left heel, unstageable; G30.9 Alzheimer's disease, unspecified; F02.80 Dementia in other diseases classified elsewhere, unspecified severity, without behavioral disturbance, psychotic disturbance, mood disturbance, and anxiety; E87.6 Hypokalemia; E83.39 Other disorders of phosphorus metabolism; R13.10 Dysphagia, unspecified
CPT/HCPCS: 36415; 51702; 70450; 71045; 74230; 80048; 80053; 81003; 81015; 83605; 83735; 84100; 84439; 84443; 85025; 87040; 87070; 87075; 87077; 87086; 87088; 87186; 87205; 92526; 92611; 93005; 96361; 96374; 99251; 99285; J0696; J1650; J7030; J7040; J7042; J7799